=== PATIENT | male | born 1950 | race Caucasian/White ===

== ENCOUNTER → 2019-06-19 | Outpatient (CLI) | payer MEDICARE, OTHER ==
--- NOTE | 2019-06-19 14:59 | RAD ---
EXAM DESCRIPTION: Pelvis CLINICAL HISTORY: pain in left hip COMPARISON: None. TECHNIQUE: AP pelvis FINDINGS: The pelvis is intact. No fracturing is detected. 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 No worrisome calcifications are seen. No soft tissue mass is noted. Minimal left acetabular osteophyte formation is observed. IMPRESSION: No fracturing is detected. Electronically signed by: Jj Gomez MD 06/19/2019 2:57 PM [facility]
--- NOTE | 2019-06-19 15:01 | RAD ---
EXAM DESCRIPTION: Knee,Left Complete CLINICAL HISTORY: pain in knee COMPARISON: None. TECHNIQUE: 2 views left FINDINGS: Calcific atherosclerotic changes are observed in the popliteal artery. 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 No joint effusion is seen. A calcific density is seen projected over the medial joint compartment. Its possible this may represent a small calcified loose body. Minimal calcification is also observed in Hoffa's fat pad. No fracture is detected. IMPRESSION: Mild degenerative changes are observed. No fracturing is detected. Electronically signed by: Jj Gomez MD 06/19/2019 2:59 PM [facility]
== END ==
LOC: RAD 08:46
PROVIDERS: ATTEND Orthopaedic Surgery
DX: M17.12 Unilateral primary osteoarthritis, left knee (principal); M25.552 Pain in left hip